=== PATIENT | male | born 1995 | race Caucasian/White ===

== ENCOUNTER 2018-08-25 18:25 | Emergency (ER) | payer BC ==
[2018-08-25] MEDS ORDERED: Lidocaine 1% 50 ML MDV INJECT ONE (19:20)
[2018-08-25] MEDS ORDERED: Lidocaine 1% 30 ML SDV ONE (19:22)
--- NOTE | 2018-08-25 19:53 | EDM.PDOC ---
ED HPI GENERAL MEDICAL PROBLEM - General Chief Complaint: ENT Problem Stated Complaint: TUNG CHECK Time Seen by Provider: 08/25/18 19:02 Source of Information: Reports: Patient, RN Notes Reviewed - History of Present Illness INITIAL COMMENTS - FREE TEXT/NARRATIVE: 23-year-old male with laceration injury to common. He butted heads with the different ballplayer scrimmaging basketball this evening a short time ago. This is likely a tooth puncture injury into the tongue with a fair amount of bleeding initially now fairly well stopped. The laceration is moderately deep. No other injury. - Related Data Allergies Allergy/AdvReac Type Severity Reaction Status Date / Time amoxicillin trihydrate Allergy Hives Verified 08/09/14 14:54 [From Augmentin] potassium clavulanate Allergy Hives Verified 08/09/14 14:54 [From Augmentin] Sulfa (Sulfonamide Allergy Hives Verified 08/09/14 14:54 Antibiotics) Home Meds: Home Meds Penicillin V Potassium 500 mg PO Q6HR #20 tab 08/25/18 [Rx] Past Medical History - Past Health History Medical/Surgical History: Denies Medical/Surgical History - Past Surgical History HEENT Surgical History: Reports: Adenoidectomy, Tonsillectomy Social & Family History - Tobacco Use Smoking Status *Q: Never Smoker - Caffeine Use Caffeine Use: Reports: Coffee, Energy Drinks Other Caffeine Use: pre-work out drinks - Recreational Drug Use Recreational Drug Use: No ED ROS ENT - Review of Systems Review Of Systems: See Below HEENT: Reports: Other (Tongue laceration) Respiratory: Denies: Shortness of Breath Cardiovascular: Denies: Chest Pain GI/Abdominal: Denies: Nausea, Vomiting Musculoskeletal: Reports: No Symptoms Neurological: Denies: Dizziness, Headache ED EXAM, ENT - Physical Exam Exam: See Below General Appearance: Alert, No Apparent Distress Mouth/Throat: Other (1.5 cm moderately deep gaping laceration dorsal distal tongue, no active bleeding at this time). No: Dental Pain Respiratory/Chest: No Respiratory Distress Neurological: Alert, Oriented, No Motor/Sensory Deficits Skin: Warm, Dry, Normal Color ED ENT PROCEDURES - Laceration/Wound Repair Distal Dorsal Mouth Lac/wound length in cm: 1.5 Appearance: Linear Local Anesthesia - Lidocaine (Xylocaine): 1% Plain Suture Size: 4-0 # of Sutures: 4 Suture Type: Other (vicryl) Course - Vital Signs Last Recorded V/S: Last Vital Signs Temp 99.4 F 08/25/18 19:17 Pulse 59 L 08/25/18 19:17 Resp 20 08/25/18 19:17 BP 130/71 08/25/18 19:17 Pulse Ox 98 08/25/18 19:17 - Orders/Labs/Meds Meds: Medications Discontinued Medications Generic Name Dose Route Start Last Admin Trade Name Guillermo PRN Reason Stop Dose Admin Lidocaine HCl 50 ml 08/25/18 19:20 08/25/18 19:49 Xylocaine 1% INJECT 08/25/18 19:21 50 ml ONETIME ONE Administration Lidocaine HCl Confirm 08/25/18 19:22 08/25/18 19:49 Xylocaine-Mpf 1% Administered 08/25/18 19:23 Not Given Dose 30 ml .ROUTE .STK-MED ONE Departure - Departure Time of Disposition: 19:46 Disposition: Home, Self-Care 01 Condition: Fair Clinical Impression: Laceration of tongue Qualifiers: Encounter type: initial encounter Qualified Code(s): S01.512A - Laceration without foreign body of oral cavity, initial encounter - Discharge Information Prescriptions: Penicillin V Potassium 500 mg PO Q6HR #20 tab Instructions: Tongue Laceration, [id number] Referrals: PCP,None [Primary Care Provider] - Forms: ED Department Discharge Additional Instructions: Laceration care instructions, and have stitches removed in about 7 days, avoid salty foods, especially for the next few days, Tylenol if needed for discomfort. Pen-Vee K antibiotic 500 mg 4 times daily for 5 days or until gone
== END 2018-08-25 20:00 | disposition home or self-care (01) ==
LOC: JD.ED 18:25
DX: S01.512A Laceration without foreign body of oral cavity, initial encounter (principal); W51.XXXA Accidental striking against or bumped into by another person, initial encounter; Y93.67 Activity, basketball; Z88.1 Allergy status to other antibiotic agents; Z88.2 Allergy status to sulfonamides
CPT/HCPCS: 12011; 41250; 99282; 99283-25